=== PATIENT | female | born 1990 | race Caucasian/White ===

== ENCOUNTER → 2021-06-27 | Outpatient (CLI) | payer OTHER ==
[~2021-06-27] MED LIST: CLONAZEPAM PO; FAMOTIDINE PO; LAMICTAL; MEDROL DOSPAK21 TA1 PO
== END ==
LOC: M.CT 06-04 09:00
PROVIDERS: ATTEND Internal Medicine Gastroenterology
DX: K52.9 Noninfective gastroenteritis and colitis, unspecified (principal); K92.1 Melena; R63.4 Abnormal weight loss; Z83.79 Family history of other diseases of the digestive system